=== PATIENT | male | born 1990 | race Caucasian/White ===

== ENCOUNTER 2017-04-15 15:20 | Emergency (ER) | payer SELFPAY ==
[~2017-04-15] VITALS: Ht 185.4 cm; Wt 84.8 kg
[2017-04-15] MEDS ORDERED: ZITHROMAX250 MG PO (15:31)
[2017-04-15] MEDS ORDERED: LIDOCAINE HCL100 ML MT (16:38)
== END 2017-04-15 16:52 | disposition home or self-care (01) ==
LOC: ED 15:20
DX: Z00.8 Encounter for other general examination (principal); Z86.19 Personal history of other infectious and parasitic diseases; Z88.0 Allergy status to penicillin; Z88.1 Allergy status to other antibiotic agents; Z79.2 Long term (current) use of antibiotics
CPT/HCPCS: 99283